=== PATIENT | female | born 1970 | race Caucasian/White ===

== ENCOUNTER 2017-06-20 09:53 | Inpatient (IN) | payer OTHER ==
[~2017-06-20] VITALS: Ht 157.5 cm; Wt 96.1 kg
[~2017-06-20 09:53] MED LIST: ALDACTONE25 MG PO; AMOX TR-K CLV1 EAC4 PO; CHLORDIAZEPOXID25 MG PO; DOCUSATE SODIU100 MG PO; ENDOCET 5-3251 EACH PO; FLORASTOR250 MG PO; FOLIC ACID1 MG PO; METFORMIN HCL1000 MG PO; NICOTINE PATCH1 EAC2 TD; ONE-A-DAY WOME1 EAC1 PO; PANTOPRAZOLE SO40 MG PO; POTASSIUM CHLO20 ME1 PO; PRAVASTATIN SOD40 MG PO; VITAMIN B-1100 MG PO
[2017-06-20 10:33] LABS: EOSINOPHIL (%) 0.1 % (0-5); HEMATOCRIT 31.3 % (36.0-46.0); IMMATURE GRANULOCYTE (%) 1.5 % (0.0-0.7); IMMATURE GRANULOCYTE COUNT 0.2 K/uL; INSTRUMENT ABS NEUTROPHIL CT 10.7 K/uL; LYMPHOCYTE COUNT 0.8 K/uL (1.0-2.8); MCHC 34.2 G/DL (30.0-36.0); MCV 102.3 FL (83-99); MEAN PLAT.VOLUME 10.7 uM^3 (9.5-12.4); MONOCYTE (%) 5.8 % (3-12); MONOCYTE COUNT 0.7 K/uL (0-0.8); NEUTROPHIL COUNT 10.7 K/uL (1.8-6.4); PLATELET COUNT 120 K/uL (156-360); RBC DIS.WIDTH-CV 15.1 % (11.8-14.6); RBC DIS.WIDTH-SD 55.8 % (39-53); RED BLOOD COUNT 3.06 M/uL (3.80-5.20); WHITE BLOOD COUNT 12.4 K/uL (4.1-10.2)
[2017-06-20 10:38] LABS: INTER. NORMALIZED RATIO 1.7; PROTHROMBIN TIME 19.2 SEC (10.2-12.9)
[2017-06-20 10:43] LABS: CHLORIDE 80 mEq/L (99-109); POTASSIUM 2.6 mEq/L (3.7-5.4); SODIUM 121 mEq/L (136-147)
[2017-06-20 10:45] LABS: GLUCOSE 100 mg/dL (70-99)
[2017-06-20 10:46] LABS: ANION GAP 25 MEQ/L (2-14)
[2017-06-20 10:48] LABS: ALKALINE PHOSPHATASE 666 IU/L (3-129)
[2017-06-20 10:49] LABS: GFR ESTIMATE (CALCULATED) 32 mL/min/
[2017-06-20 10:50] LABS: UREA NITROGEN (BUN) 21 mg/dL (9-23)
[2017-06-20 10:52] LABS: LIPASE 182 U/L (1.0-51.0)
[2017-06-20 10:58] LABS: TOTAL BILIRUBIN 30.3 mg/dL (0.0-1.0)
[2017-06-20] MEDS ORDERED: ADVIL200 MG PO (14:25)
[2017-06-20] MEDS ORDERED: ALLERGY EYE DRO10 ML BOTH EYES (14:26)
[2017-06-20] MEDS ORDERED: DIABETIC TP (14:28)
[2017-06-20 16:21] VITALS: BP 114/64
[2017-06-20 17:19] LABS: SERUM ETHYL ALCOHOL 61 mg/dL
[2017-06-20 20:17] VITALS: BP 103/70
[2017-06-20 22:57] VITALS: BP 126/84
[2017-06-21 04:24] VITALS: BP 112/77
[2017-06-21 06:03] LABS: HEMATOCRIT 30.3 % (36.0-46.0); MCHC 34.3 G/DL (30.0-36.0); MCV 104.8 FL (83-99); PLATELET COUNT 123 K/uL (156-360); RBC DIS.WIDTH-CV 15.5 % (11.8-14.6); RBC DIS.WIDTH-SD 58.5 % (39-53); RED BLOOD COUNT 2.89 M/uL (3.80-5.20); WHITE BLOOD COUNT 12.1 K/uL (4.1-10.2)
[2017-06-21 06:27] LABS: INTER. NORMALIZED RATIO 1.8; PROTHROMBIN TIME 19.9 SEC (10.2-12.9)
[2017-06-21 06:39] LABS: ALKALINE PHOSPHATASE 567 IU/L (3-129); ANION GAP 19 MEQ/L (2-14); CHLORIDE 85 MEQ/L (99-109); GAMMA-GT 2133 IU/L (4-73); GFR ESTIMATE (CALCULATED) 26 mL/min/; GLUCOSE 96 mg/dL (70-99); HDL CHOLESTEROL 16 MG/DL (Desirable>=50); IRON 119 MCG/DL (35-150); LDL CHOLESTEROL 488 mg/dL (Desirable<100); NON-HDL CHOLESTEROL 545 mg/dL (Desirable<160); SAMPLE HEMOLYSIS CHECK 0; SAMPLE ICTERIC CHECK 4; SAMPLE LIPEMIA CHECK 0; SODIUM 122 MEQ/L (136-147); TOTAL BILIRUBIN 31.4 MG/DL (0.0-1.0); TOTAL CHOLESTEROL 561 mg/dL (Desirable<200); TRIGLYCERIDES 283 MG/DL (Normal: <150); UREA NITROGEN (BUN) 26 mg/dL (9-23)
[2017-06-21 08:03] VITALS: BP 120/73
[2017-06-21 11:06] LABS: HBSG INDEX 0.16; HPCA INDEX 0.31
[2017-06-21 11:08] LABS: ANTI-HEPATITIS A VIRUS (IGM) Nonreactive; ANTI-HEPATITIS B CORE (IGM) Nonreactive; HAV INDEX 0.13; HBC IgM INDEX 0.08
[2017-06-21 11:39] LABS: TYPE OF FLUID PARACENTESIS
[2017-06-21 12:46] LABS: BODY FLUID EOSINOPHILS 0 % (0-25); BODY FLUID RBC'S 1000 /MM^3 (0-100); BODY FLUID WBC'S 149 /MM^3 (0-500); MONONUCLEAR WBC'S 83 %; POLYNUCLEAR WBC'S 17 % (0-25)
[2017-06-21 15:45] VITALS: BP 111/73
[2017-06-21 17:00] LABS: MAGNESIUM 2.2 mg/dl (1.3-2.7)
[2017-06-21 17:25] LABS: ADD MIUA? YES; BILIRUBIN MODERATE; BLOOD LARGE; COLOR AMBER ((YELLOW)); GLUCOSE (STRIP) 50; KETONES 5; LEUKOCYTES SMALL; NITRITE NEGATIVE; PROTEIN (STRIP) 30; SPECIFIC GRAVITY 1.021 (1.000-1.030)
[2017-06-21 17:26] LABS: ADD MIUA? YES; BILIRUBIN MODERATE; BLOOD LARGE; COLOR AMBER ((YELLOW)); GLUCOSE (STRIP) 50; KETONES NEGATIVE; LEUKOCYTES SMALL; NITRITE NEGATIVE; PROTEIN (STRIP) 30; SPECIFIC GRAVITY 1.021 (1.000-1.030)
[2017-06-21 17:54] LABS: UR CREATININE CONCENTRATION 152.5 MG/DL
[2017-06-21 18:01] LABS: ICTOTEST POSITIVE
[2017-06-21 18:04] LABS: ICTOTEST POSITIVE
[2017-06-21 19:20] LABS: CREATINE KINASE 30 IU/L (1-294)
[2017-06-21 19:23] VITALS: BP 111/76
[2017-06-21 19:41] LABS: EPITHELIAL CELLS RARE /HPF; MUCUS RARE /LPF; RED BLOOD CELLS 15-20 /HPF (0-5)
[2017-06-21 19:42] LABS: BACTERIA 1+ /HPF; CASTS PRESENT /LPF; HYALINE CASTS 0-5 /LPF
[2017-06-21 19:46] LABS: CRYSTALS NONE SEEN
[2017-06-21 19:48] LABS: BACTERIA 1+ /HPF; CASTS PRESENT /LPF; CRYSTALS NONE SEEN; EPITHELIAL CELLS RARE /HPF; HYALINE CASTS 0-5 /LPF; MUCUS RARE /LPF; RED BLOOD CELLS 15-20 /HPF (0-5); UCUL ADDED? YES
[2017-06-21 22:38] VITALS: BP 130/89
[2017-06-22 02:59] VITALS: BP 118/72
[2017-06-22 08:11] VITALS: BP 134/78
[2017-06-22 09:18] LABS: EOSINOPHIL (%) 0.3 % (0-5); HEMATOCRIT 28.2 % (36.0-46.0); IMMATURE GRANULOCYTE (%) 1.3 % (0.0-0.7); IMMATURE GRANULOCYTE COUNT 0.2 K/uL; INSTRUMENT ABS NEUTROPHIL CT 9.7 K/uL; LYMPHOCYTE COUNT 0.9 K/uL (1.0-2.8); MCH 36.5 PG (29.0-34.0); MCHC 33.7 G/DL (30.0-36.0); MCV 108.5 FL (83-99); MEAN PLAT.VOLUME 10.6 uM^3 (9.5-12.4); MONOCYTE (%) 7.2 % (3-12); MONOCYTE COUNT 0.8 K/uL (0-0.8); NEUTROPHIL (%) 83.3 % (45-76); NEUTROPHIL COUNT 9.7 K/uL (1.8-6.4); NRBC (%) 0.2 /100 WBC (0-0); PLATELET COUNT 107 K/uL (156-360); RBC DIS.WIDTH-CV 15.8 % (11.8-14.6); RBC DIS.WIDTH-SD 62.3 % (39-53); WHITE BLOOD COUNT 11.6 K/uL (4.1-10.2)
[2017-06-22 10:02] LABS: ALKALINE PHOSPHATASE 528 IU/L (3-129); ANION GAP 19 MEQ/L (2-14); CHLORIDE 90 MEQ/L (99-109); DIRECT BILIRUBIN 23.6 mg/dL (0.0-0.3); GFR ESTIMATE (CALCULATED) 24 mL/min/; POTASSIUM 3.4 MEQ/L (3.7-5.4); SAMPLE HEMOLYSIS CHECK 0; SAMPLE ICTERIC CHECK 4; SAMPLE LIPEMIA CHECK 1; SODIUM 125 MEQ/L (136-147); TOTAL BILIRUBIN 32.7 MG/DL (0.0-1.0); UREA NITROGEN (BUN) 34 mg/dL (9-23)
[2017-06-22 10:07] LABS: GLUCOSE 61 mg/dL (70-99)
[2017-06-22 11:43] VITALS: BP 126/74
[2017-06-22 15:59] VITALS: BP 104/73
[2017-06-22] MEDS ORDERED: Chronulac,Cephulac,E PO (19:48)
[2017-06-22] MEDS ORDERED: DIPHENHYDR50 MG/1 M2 IV (19:48)
[2017-06-22] MEDS ORDERED: XIFAXAN550 MG PO (19:48)
[2017-06-22] MEDS ORDERED: ONDANSETRON4 MG/2 ML IV (19:49)
[2017-06-22] MEDS ORDERED: NABI650T PO (19:49)
[2017-06-22] MEDS ORDERED: FAMOTIDINE20 MG PO (19:50)
[2017-06-22] MEDS ORDERED: ROCEPHIN1 GM/50 ML IV (19:51)
[2017-06-22] MEDS ORDERED: DIALYVITE50000 UNIT PO (19:51)
[2017-06-22 22:27] VITALS: BP 120/71
[2017-06-23] VITALS (8 sets, daily range): BP systolic 0–138; BP diastolic 0–107
[2017-06-23 04:02] LABS: BASE EXCESS -13.9 mEq/L (-3 to +3); BICARBONATE 15.2 mEq/L (22-26); CARBOXY HGB 1.6 % (0-5); METHEMOGLOBIN 2.6 % (0-1.5); PCO2 49 mm Hg (35-45); PO2 218 mm Hg (80-100)
[2017-06-23 04:03] LABS: COMMENTS - BLOOD GASES C+; DEVICE AMBU/ETT; FI02 100 %; SITE LR; TOTAL RESP RATE 20 resp/min
[2017-06-23 04:27] LABS: HEMATOCRIT 29.5 % (36.0-46.0); MCH 35.4 PG (29.0-34.0); MCHC 32.2 G/DL (30.0-36.0); MCV 110.1 FL (83-99); MEAN PLAT.VOLUME 10.4 uM^3 (9.5-12.4); NRBC (%) 0.3 /100 WBC (0-0); PLATELET COUNT 142 K/uL (156-360); RBC DIS.WIDTH-CV 15.8 % (11.8-14.6); RBC DIS.WIDTH-SD 63.1 % (39-53); RED BLOOD COUNT 2.68 M/uL (3.80-5.20); WHITE BLOOD COUNT 18.6 K/uL (4.1-10.2)
[2017-06-23 04:30] LABS: POTASSIUM 3.9 mEq/L (3.7-5.4); SODIUM 129 mEq/L (136-147)
[2017-06-23 04:31] LABS: CHLORIDE 94 mEq/L (99-109); MAGNESIUM 1.9 mg/dL (1.3-2.7)
[2017-06-23 04:34] LABS: ANION GAP 21 MEQ/L (2-14); GLUCOSE 86 mg/dL (70-99)
[2017-06-23 04:36] LABS: GFR ESTIMATE (CALCULATED) 22 mL/min/
[2017-06-23 04:37] LABS: ALKALINE PHOSPHATASE 495 IU/L (3-129); UREA NITROGEN (BUN) 34 mg/dL (9-23)
[2017-06-23 04:43] LABS: TOTAL BILIRUBIN 32.1 mg/dL (0.0-1.0)
[2017-06-23 05:17] LABS: BASE EXCESS -14.4 mEq/L (-3 to +3); BICARBONATE 17.3 mEq/L (22-26); CARBOXY HGB 3.1 % (0-5)
[2017-06-23 05:19] LABS: COMMENTS - BLOOD GASES C+; DEVICE AEROSOL FACE MASK; FI02 100 %; O2 FLOW 11 L/MIN; PCO2 75 mm Hg (35-45); SITE LB; pH 6.97 (7.35-7.45)
[2017-06-23 05:20] LABS: PO2 35 mm Hg (80-100)
[2017-06-24 18:52] LABS: HEMATOCRIT 26.6 % (36.0-46.0); MCH 37.1 PG (29.0-34.0); MEAN PLAT.VOLUME 10.4 uM^3 (9.5-12.4); NRBC (%) 0.3 /100 WBC (0-0); PLATELET COUNT 111 K/uL (156-360); RBC DIS.WIDTH-SD 62.3 % (39-53); RED BLOOD COUNT 2.51 M/uL (3.80-5.20); WHITE BLOOD COUNT 10.8 K/uL (4.1-10.2)
[2017-06-24 18:57] LABS: INTER. NORMALIZED RATIO 1.9
[2017-06-24 19:09] LABS: ALKALINE PHOSPHATASE 427 IU/L (3-129); ANION GAP 15 MEQ/L (2-14); CHLORIDE 90 MEQ/L (99-109); GFR ESTIMATE (CALCULATED) 18 mL/min/; GLUCOSE 85 mg/dL (70-99); POTASSIUM 2.9 MEQ/L (3.7-5.4); SAMPLE HEMOLYSIS CHECK 0; SAMPLE ICTERIC CHECK 4; SAMPLE LIPEMIA CHECK 1; SODIUM 127 MEQ/L (136-147); TOTAL BILIRUBIN 29.6 MG/DL (0.0-1.0); UREA NITROGEN (BUN) 42 mg/dL (9-23)
== END 2017-06-24 23:03 | disposition short-term general hospital (02) | DRG 441 ==
LOC: EME 09:53 → 5EAST 14:43 → EDOF 14:43 → ENRESERV 14:48 → 5EAST 15:44 → ENRESERV 06-22 19:15 → 4EAST 06-22 22:07 → ENRESERV 06-23 04:05 → 4WEST 06-23 04:06 → ENRESERV 06-23 08:04 → 5EAST 06-23 10:41 → ENRESERV 06-23 13:53 → CANRESERV 06-23 13:53 → 5EAST 06-23 14:02
PROVIDERS: Emergency Medicine; Family Medicine Sports Medicine; Hospitalist; Internal Medicine; Specialist; Urology
DX: K76.7 Hepatorenal syndrome (principal); N17.0 Acute kidney failure with tubular necrosis; K70.31 Alcoholic cirrhosis of liver with ascites; K70.11 Alcoholic hepatitis with ascites; K72.00 Acute and subacute hepatic failure without coma; N30.81 Other cystitis with hematuria; R56.9 Unspecified convulsions; J96.90 Respiratory failure, unspecified, unspecified whether with hypoxia or hypercapnia; I46.9 Cardiac arrest, cause unspecified; J69.0 Pneumonitis due to inhalation of food and vomit; Z66 Do not resuscitate; Z51.5 Encounter for palliative care; E87.1 Hypo-osmolality and hyponatremia; E87.6 Hypokalemia; E87.4 Mixed disorder of acid-base balance; R78.81 Bacteremia; B96.20 Unspecified Escherichia coli [E. coli] as the cause of diseases classified elsewhere; F10.20 Alcohol dependence, uncomplicated; D53.9 Nutritional anemia, unspecified; I12.9 Hypertensive chronic kidney disease with stage 1 through stage 4 chronic kidney disease, or unspecified chronic kidney disease; E11.22 Type 2 diabetes mellitus with diabetic chronic kidney disease; N18.9 Chronic kidney disease, unspecified; E66.9 Obesity, unspecified; F17.210 Nicotine dependence, cigarettes, uncomplicated; F32.9 Major depressive disorder, single episode, unspecified; F40.240 Claustrophobia; F43.20 Adjustment disorder, unspecified; I25.10 Atherosclerotic heart disease of native coronary artery without angina pectoris; I73.9 Peripheral vascular disease, unspecified; J44.9 Chronic obstructive pulmonary disease, unspecified; K21.9 Gastro-esophageal reflux disease without esophagitis; K80.20 Calculus of gallbladder without cholecystitis without obstruction; Y90.3 Blood alcohol level of 60-79 mg/100 ml; Z91.19 Patient's noncompliance with other medical treatment and regimen
CPT/HCPCS: 31500; 36600; 49083; 71010; 74176; 76705; 76770; 76856; 80053; 80061; 80074; 81003; 82010; 82140; 82248; 82306; 82436; 82550; 82570; 82607; 82746; 82803; 82977; 83540; 83605; 83690; 83735; 84156; 84300; 84443; 84466; 85025; 85027; 85610; 87040; 87070; 87077; 87086; 87106; 87186; 87205; 87641; 87801; 88108; 89051; 93005; 94002; 94640 76; 94799; 99281; 99285; G0480; J0696; J1200; J2270; J2543; J3370; J3480; J7030; J7050; J7070; J7120; P9047

== ENCOUNTER 2017-09-21 06:13 | Emergency (ER) | payer OTHER ==
[~2017-09-21] VITALS: Ht 157.5 cm; Wt 72.7 kg
[~2017-09-21 06:13] MED LIST changes: +ADVIL200 MG PO; +ALLERGY EYE DRO10 ML BOTH EYES; +Chronulac,Cephulac,E PO; +DIABETIC TP; +DIALYVITE50000 UNIT PO; +DIPHENHYDR50 MG/1 M2 IV; +FAMOTIDINE20 MG PO; +NABI650T PO; +ONDANSETRON4 MG/2 ML IV; +ROCEPHIN1 GM/50 ML IV; +XIFAXAN550 MG PO
[2017-09-21] MEDS ORDERED: NORCO 5/3251 TABLET PO (06:46)
[2017-09-21] MEDS ORDERED: DOXYCYCLINE HY100 M3 PO (06:46)
[2017-09-21 06:54] VITALS: BP 135/94
== END 2017-09-21 07:13 | disposition home or self-care (01) ==
LOC: EME 06:13
DX: L03.311 Cellulitis of abdominal wall (principal); I10 Essential (primary) hypertension; K21.9 Gastro-esophageal reflux disease without esophagitis; R56.9 Unspecified convulsions; F17.200 Nicotine dependence, unspecified, uncomplicated
CPT/HCPCS: 99281; 99284

== ENCOUNTER 2017-09-29 06:15 | Emergency (ER) | payer OTHER ==
[~2017-09-29] VITALS: Ht 157.5 cm; Wt 66.8 kg
[~2017-09-29 06:15] MED LIST changes: +DOXYCYCLINE HY100 M3 PO; +NORCO 5/3251 TABLET PO
[2017-09-29 07:07] LABS: HEMATOCRIT 26.3 % (36.0-46.0); MCH 31.1 PG (29.0-34.0); MCHC 34.2 G/DL (30.0-36.0); MEAN PLAT.VOLUME 9.4 uM^3 (9.5-12.4); PLATELET COUNT 272 K/uL (156-360); RBC DIS.WIDTH-CV 13.7 % (11.8-14.6); RBC DIS.WIDTH-SD 45.5 % (39-53); RED BLOOD COUNT 2.89 M/uL (3.80-5.20); WHITE BLOOD COUNT 9.6 K/uL (4.1-10.2)
[2017-09-29 07:42] LABS: ALKALINE PHOSPHATASE 89 IU/L (3-129); ANION GAP 11 MEQ/L (2-14); CHLORIDE 98 MEQ/L (99-109); GFR ESTIMATE (CALCULATED) 29 mL/min/; GLUCOSE 108 mg/dL (70-99); POTASSIUM 3.7 MEQ/L (3.7-5.4); SAMPLE HEMOLYSIS CHECK 0; SAMPLE ICTERIC CHECK 0; SAMPLE LIPEMIA CHECK 0; SODIUM 132 MEQ/L (136-147); TOTAL BILIRUBIN 1.8 MG/DL (0.0-1.0); UREA NITROGEN (BUN) 24 mg/dL (9-23)
[2017-09-29] MEDS ORDERED: PERCOCET 5/31 TABLET PO (08:04)
[2017-09-29] MEDS ORDERED: KENALOG,ARISTOC15 G2 TP (08:04)
[2017-09-29] MEDS ORDERED: BACTRIM,SEPT1 TABLET PO (08:04)
[2017-09-29 08:47] VITALS: BP 103/78
== END 2017-09-29 08:51 | disposition home or self-care (01) ==
LOC: EME 06:15
PROVIDERS: Emergency Medicine
PROC: 0H97XZZ Drainage of Abdomen Skin, External Approach (ICD-10-PCS; principal; 2017-09-29)
DX: L03.311 Cellulitis of abdominal wall (principal); L02.211 Cutaneous abscess of abdominal wall; D64.9 Anemia, unspecified; K74.60 Unspecified cirrhosis of liver; I10 Essential (primary) hypertension; K21.9 Gastro-esophageal reflux disease without esophagitis; F17.200 Nicotine dependence, unspecified, uncomplicated
CPT/HCPCS: 80053; 85027; 87040; 87070; 87075; 87077; 87186; 87205; 99281; 99283; J2270

== ENCOUNTER 2017-10-19 06:38 | Emergency (ER) | payer OTHER ==
[~2017-10-19] VITALS: Ht 157.5 cm; Wt 65.4 kg
[~2017-10-19 06:38] MED LIST changes: +BACTRIM,SEPT1 TABLET PO; +KENALOG,ARISTOC15 G2 TP; +PERCOCET 5/31 TABLET PO
[2017-10-19] MEDS ORDERED: NORCO 5/3251 TABLET PO (12:54)
[2017-10-19] MEDS ORDERED: BACTRIM,SEPT1 TABLET PO (12:54)
[2017-10-19 13:07] VITALS: BP 106/75
== END 2017-10-19 13:07 | disposition home or self-care (01) ==
LOC: EME 06:38
DX: L03.311 Cellulitis of abdominal wall (principal); I10 Essential (primary) hypertension; R56.9 Unspecified convulsions; K74.60 Unspecified cirrhosis of liver; F17.200 Nicotine dependence, unspecified, uncomplicated
CPT/HCPCS: 76882; 80053; 81003; 84702; 85027; 99281; 99284; J2270

== ENCOUNTER 2017-10-25 05:54 | Emergency (ER) | payer OTHER ==
[~2017-10-25] VITALS: Ht 157.5 cm; Wt 65.4 kg
[2017-10-25 06:33] LABS: HEMATOCRIT 25.4 % (36.0-46.0); HEMOGLOBIN 8.9 G/DL (11.9-15.5); MCH 30.9 PG (29.0-34.0); PLATELET COUNT 368 K/uL (156-360); RBC DIS.WIDTH-CV 13.2 % (11.8-14.6); RBC DIS.WIDTH-SD 42.5 % (39-53); RED BLOOD COUNT 2.88 M/uL (3.80-5.20)
[2017-10-25 06:34] LABS: MCV 88.2 FL (83-99)
[2017-10-25 06:48] LABS: CHLORIDE 94 mEq/L (99-109); POTASSIUM 5.2 mEq/L (3.7-5.4); SODIUM 123 mEq/L (136-147)
[2017-10-25 06:49] LABS: GLUCOSE 86 mg/dL (70-99)
[2017-10-25 06:53] LABS: GFR ESTIMATE (CALCULATED) 29 mL/min/
[2017-10-25 06:54] LABS: UREA NITROGEN (BUN) 36 mg/dL (9-23)
[2017-10-25] MEDS ORDERED: LEVAQUIN500 MG PO (09:34)
[2017-10-25] MEDS ORDERED: OXYCODONE HCL10 MG PO (09:34)
[2017-10-25 11:48] VITALS: BP 121/72
== END 2017-10-25 11:49 | disposition home or self-care (01) ==
LOC: EME 05:54
PROVIDERS: Physician Assistant
DX: L03.311 Cellulitis of abdominal wall (principal); F17.200 Nicotine dependence, unspecified, uncomplicated; K74.60 Unspecified cirrhosis of liver; I10 Essential (primary) hypertension; Z76.82 Awaiting organ transplant status
CPT/HCPCS: 74176; 80048; 81003; 83605; 85027; 87040; 87070; 87075; 87205; 99281; 99284; J3010; J7030

== ENCOUNTER 2017-10-28 03:58 | Inpatient (IN) | payer OTHER ==
[~2017-10-28] VITALS: Ht 157.5 cm; Wt 61.4 kg
[~2017-10-28 03:58] MED LIST changes: +LEVAQUIN500 MG PO; +OXYCODONE HCL10 MG PO
[2017-10-28 04:38] LABS: HEMATOCRIT 24.4 % (36.0-46.0); HEMOGLOBIN 8.5 G/DL (11.9-15.5); MCH 30.7 PG (29.0-34.0); MCHC 34.8 G/DL (30.0-36.0); MCV 88.1 FL (83-99); PLATELET COUNT 350 K/uL (156-360); RBC DIS.WIDTH-CV 13.1 % (11.8-14.6); RBC DIS.WIDTH-SD 42.4 % (39-53); RED BLOOD COUNT 2.77 M/uL (3.80-5.20); WHITE BLOOD COUNT 13.9 K/uL (4.1-10.2)
[2017-10-28 04:47] LABS: ALBUMIN 3.5 g/dL (3.2-4.8)
[2017-10-28 04:48] LABS: CHLORIDE 99 mEq/L (99-109); POTASSIUM 5.2 mEq/L (3.7-5.4); SODIUM 125 mEq/L (136-147)
[2017-10-28 04:50] LABS: GLUCOSE 107 mg/dL (70-99); TOTAL PROTEIN 8.5 g/dL (6.4-8.3)
[2017-10-28 04:52] LABS: TOTAL BILIRUBIN 0.6 mg/dL (0.0-1.0)
[2017-10-28 04:53] LABS: ALKALINE PHOSPHATASE 123 IU/L (3-129)
[2017-10-28 04:54] LABS: CREATININE 2.3 mg/dL (0.6-1.3); GFR ESTIMATE (CALCULATED) 24 mL/min/
[2017-10-28 04:55] LABS: AST (GOT) 25 IU/L (2-34); UREA NITROGEN (BUN) 35 mg/dL (9-23)
[2017-10-28 04:57] LABS: ALT (GPT) 15 IU/L (3-49); LIPASE 60 U/L (1.0-51.0)
[2017-10-28 06:24] LABS: APPEARANCE CLEAR ((CLEAR)); BILIRUBIN NEGATIVE; BLOOD NEGATIVE; COLOR YELLOW ((YELLOW)); GLUCOSE (STRIP) NEGATIVE; KETONES NEGATIVE; LEUKOCYTES NEGATIVE; NITRITE NEGATIVE; PROTEIN (STRIP) NEGATIVE; SPECIFIC GRAVITY 1.011 (1.000-1.030); UCUL ADDED? NO; UROBILINOGEN 0.2 MG/DL (0.2-1.0)
[2017-10-28 13:50] LABS: CHLORIDE 107 mEq/L (99-109); POTASSIUM 4.8 mEq/L (3.7-5.4); SODIUM 129 mEq/L (136-147)
[2017-10-28 13:52] LABS: GLUCOSE 88 mg/dL (70-99)
[2017-10-28 13:55] LABS: CREATININE 1.9 mg/dL (0.6-1.3); GFR ESTIMATE (CALCULATED) 30 mL/min/
[2017-10-28 13:56] LABS: UREA NITROGEN (BUN) 30 mg/dL (9-23)
[2017-10-28 17:55] VITALS: BP 133/90
[2017-10-28 19:50] VITALS: BP 123/70
[2017-10-28] MEDS ORDERED: BENADRYL50 MG PO (20:53)
[2017-10-28] MEDS ORDERED: SIMVASTATIN20 MG PO (20:59)
[2017-10-28] MEDS ORDERED: LASIX40 MG PO (20:59)
[2017-10-28] MEDS ORDERED: ALDACTONE100 MG PO (21:00)
[2017-10-28 23:35] VITALS: BP 122/77
[2017-10-29] VITALS (7 sets, daily range): BP systolic 111–128; BP diastolic 61–80
[2017-10-29 07:59] LABS: BASOPHIL (%) 0.4 % (0-1); EOSINOPHIL (%) 1.9 % (0-5); EOSINOPHIL COUNT 0.2 K/uL (0-0.3); HEMATOCRIT 24.2 % (36.0-46.0); HEMOGLOBIN 8.2 G/DL (11.9-15.5); IMMATURE GRANULOCYTE (%) 0.4 % (0.0-0.7); LYMPHOCYTE COUNT 1.8 K/uL (1.0-2.8); MCH 31.1 PG (29.0-34.0); MCHC 33.9 G/DL (30.0-36.0); MCV 91.7 FL (83-99); MONOCYTE (%) 10.1 % (3-12); NEUTROPHIL (%) 69.2 % (45-76); NEUTROPHIL COUNT 6.9 K/uL (1.8-6.4); PLATELET COUNT 293 K/uL (156-360); RBC DIS.WIDTH-CV 13.4 % (11.8-14.6); RBC DIS.WIDTH-SD 45.1 % (39-53); RED BLOOD COUNT 2.64 M/uL (3.80-5.20)
[2017-10-29 08:22] LABS: ALBUMIN 2.7 G/DL (3.2-4.8); ALKALINE PHOSPHATASE 93 IU/L (3-129); ALT (GPT) 12 IU/L (3-49); AST (GOT) 20 IU/L (2-34); CHLORIDE 105 MEQ/L (99-109); GFR ESTIMATE (CALCULATED) 47 mL/min/; GLUCOSE 81 mg/dL (70-99); POTASSIUM 4.2 MEQ/L (3.7-5.4); SODIUM 129 MEQ/L (136-147); TOTAL BILIRUBIN 0.7 MG/DL (0.0-1.0); UREA NITROGEN (BUN) 19 mg/dL (9-23)
[2017-10-29 08:27] LABS: CREATININE 1.3 MG/DL (0.6-1.3)
[2017-10-30 03:20] VITALS: BP 120/77
[2017-10-30 08:32] VITALS: BP 134/77
[2017-10-30 15:45] VITALS: BP 123/65
[2017-10-30 23:14] VITALS: BP 129/64
[2017-10-31 06:46] LABS: BASOPHIL (%) 0.5 % (0-1); BASOPHIL COUNT 0.1 K/uL (0-0.1); EOSINOPHIL (%) 2.2 % (0-5); EOSINOPHIL COUNT 0.2 K/uL (0-0.3); HEMATOCRIT 22.2 % (36.0-46.0); HEMOGLOBIN 7.5 G/DL (11.9-15.5); IMMATURE GRANULOCYTE (%) 0.6 % (0.0-0.7); LYMPHOCYTE (%) 14.5 % (15-42); LYMPHOCYTE COUNT 1.5 K/uL (1.0-2.8); MCH 31.1 PG (29.0-34.0); MCHC 33.8 G/DL (30.0-36.0); MCV 92.1 FL (83-99); MONOCYTE (%) 7.6 % (3-12); MONOCYTE COUNT 0.8 K/uL (0-0.8); NEUTROPHIL (%) 74.6 % (45-76); NEUTROPHIL COUNT 7.5 K/uL (1.8-6.4); PLATELET COUNT 272 K/uL (156-360); RBC DIS.WIDTH-CV 13.8 % (11.8-14.6); RBC DIS.WIDTH-SD 46.7 % (39-53); RED BLOOD COUNT 2.41 M/uL (3.80-5.20)
[2017-10-31 07:09] VITALS: BP 116/66
[2017-10-31 07:09] LABS: CHLORIDE 111 MEQ/L (99-109); CREATININE 0.9 MG/DL (0.6-1.3); GFR ESTIMATE (CALCULATED) > 59 mL/min/; GLUCOSE 91 mg/dL (70-99); POTASSIUM 3.8 MEQ/L (3.7-5.4); SODIUM 134 MEQ/L (136-147); UREA NITROGEN (BUN) 11 mg/dL (9-23)
[2017-10-31 15:24] VITALS: BP 112/72
[2017-10-31 23:05] VITALS: BP 126/81
[2017-11-01] VITALS (9 sets, daily range): BP systolic 108–143; BP diastolic 68–89
[2017-11-01 10:01] LABS: HEMATOCRIT 26.8 % (36.0-46.0); HEMOGLOBIN 8.8 G/DL (11.9-15.5); MCH 29.4 PG (29.0-34.0); MCHC 32.8 G/DL (30.0-36.0); MCV 89.6 FL (83-99); PLATELET COUNT 261 K/uL (156-360); RBC DIS.WIDTH-CV 14.2 % (11.8-14.6); RBC DIS.WIDTH-SD 46.6 % (39-53)
[2017-11-01 10:12] LABS: RED BLOOD COUNT 2.99 M/uL (3.80-5.20)
[2017-11-01 11:07] LABS: ALBUMIN 2.2 G/DL (3.2-4.8); ALKALINE PHOSPHATASE 83 IU/L (3-129); ALT (GPT) 14 IU/L (3-49); AST (GOT) 22 IU/L (2-34); CHLORIDE 114 MEQ/L (99-109); CREATININE 0.9 MG/DL (0.6-1.3); GFR ESTIMATE (CALCULATED) > 59 mL/min/; GLUCOSE 125 mg/dL (70-99); POTASSIUM 3.6 MEQ/L (3.7-5.4); SODIUM 135 MEQ/L (136-147); UREA NITROGEN (BUN) 9 mg/dL (9-23)
[2017-11-01 11:08] LABS: TOTAL BILIRUBIN 0.5 MG/DL (0.0-1.0); TOTAL PROTEIN 5.7 G/DL (6.4-8.3)
[2017-11-02 00:54] VITALS: BP 131/81
[2017-11-02 07:00] VITALS: BP 128/89
[2017-11-02 07:09] LABS: BASOPHIL (%) 0.6 % (0-1); BASOPHIL COUNT 0.1 K/uL (0-0.1); EOSINOPHIL (%) 2.3 % (0-5); EOSINOPHIL COUNT 0.3 K/uL (0-0.3); HEMATOCRIT 29.9 % (36.0-46.0); HEMOGLOBIN 9.8 G/DL (11.9-15.5); IMMATURE GRANULOCYTE (%) 0.6 % (0.0-0.7); LYMPHOCYTE (%) 14.8 % (15-42); LYMPHOCYTE COUNT 1.9 K/uL (1.0-2.8); MCH 29.5 PG (29.0-34.0); MCHC 32.8 G/DL (30.0-36.0); MCV 90.1 FL (83-99); MONOCYTE (%) 8.2 % (3-12); MONOCYTE COUNT 1.1 K/uL (0-0.8); NEUTROPHIL (%) 73.5 % (45-76); NEUTROPHIL COUNT 9.5 K/uL (1.8-6.4); PLATELET COUNT 322 K/uL (156-360); RBC DIS.WIDTH-SD 49.3 % (39-53); RED BLOOD COUNT 3.32 M/uL (3.80-5.20); WHITE BLOOD COUNT 12.9 K/uL (4.1-10.2)
[2017-11-02 07:44] LABS: CHLORIDE 114 MEQ/L (99-109); CREATININE 0.9 MG/DL (0.6-1.3); GFR ESTIMATE (CALCULATED) > 59 mL/min/; POTASSIUM 3.9 MEQ/L (3.7-5.4); SODIUM 136 MEQ/L (136-147); UREA NITROGEN (BUN) 8 mg/dL (9-23)
[2017-11-02 07:47] LABS: GLUCOSE 86 mg/dL (70-99)
[2017-11-02 15:40] VITALS: BP 124/83
[2017-11-02 20:05] VITALS: BP 129/89
[2017-11-02] MEDS ORDERED: TYLENOL REGULA325 MG PO (20:06)
[2017-11-02] MEDS ORDERED: DOCUSATE SODIU100 MG PO (20:07)
== END 2017-11-02 21:02 | disposition home or self-care (01) | DRG 872 ==
LOC: EME → EDBD 03:58 → EME 03:58 → 2EAST 06:22 → EDOF 06:22 → ENRESERV 07:23 → 2EAST 17:31
PROVIDERS: Emergency Medicine; Internal Medicine
PROC: 30233N1 Transfusion of Nonautologous Red Blood Cells into Peripheral Vein, Percutaneous Approach (ICD-10-PCS; principal; 2017-11-01)
DX: A41.9 Sepsis, unspecified organism (principal); L03.311 Cellulitis of abdominal wall; N17.9 Acute kidney failure, unspecified; E11.52 Type 2 diabetes mellitus with diabetic peripheral angiopathy with gangrene; I96 Gangrene, not elsewhere classified; E87.1 Hypo-osmolality and hyponatremia; D64.9 Anemia, unspecified; B96.89 Other specified bacterial agents as the cause of diseases classified elsewhere; I12.9 Hypertensive chronic kidney disease with stage 1 through stage 4 chronic kidney disease, or unspecified chronic kidney disease; N18.9 Chronic kidney disease, unspecified; E11.22 Type 2 diabetes mellitus with diabetic chronic kidney disease; E87.0 Hyperosmolality and hypernatremia; E87.2 Acidosis; E83.59 Other disorders of calcium metabolism; R41.0 Disorientation, unspecified; K73.9 Chronic hepatitis, unspecified; K70.30 Alcoholic cirrhosis of liver without ascites; F10.20 Alcohol dependence, uncomplicated; K21.9 Gastro-esophageal reflux disease without esophagitis; K80.20 Calculus of gallbladder without cholecystitis without obstruction; F32.9 Major depressive disorder, single episode, unspecified; F41.9 Anxiety disorder, unspecified; E78.5 Hyperlipidemia, unspecified; G40.909 Epilepsy, unspecified, not intractable, without status epilepticus; M79.3 Panniculitis, unspecified; F17.200 Nicotine dependence, unspecified, uncomplicated; Z90.12 Acquired absence of left breast and nipple; Z91.19 Patient's noncompliance with other medical treatment and regimen; Z83.3 Family history of diabetes mellitus; Z82.49 Family history of ischemic heart disease and other diseases of the circulatory system
CPT/HCPCS: 71045; 74176; 80048; 80048 91; 80053; 81003; 82140; 82948; 83605; 83690; 85025; 85027; 86850; 86900; 86901; 86920; 87040; 87070; 87075; 87076; 87077; 87205; 87801; 99281; 99284; 99285; A6260; J0696; J2543; J3010; J3260; J3370; J7030; J7050; P9016

== ENCOUNTER 2017-12-22 09:42 | Emergency (ER) | payer OTHER ==
[~2017-12-22] VITALS: Ht 157.5 cm; Wt 57.0 kg
[~2017-12-22 09:42] MED LIST changes: +ALDACTONE100 MG PO; +BENADRYL50 MG PO; +CONSTULOSE10 GM/15 M PO; +LASIX40 MG PO; +SIMVASTATIN20 MG PO; +TYLENOL REGULA325 MG PO
[2017-12-22 11:39] LABS: HEMATOCRIT 27.4 % (36.0-46.0); HEMOGLOBIN 9.5 G/DL (11.9-15.5); MCH 30.6 PG (29.0-34.0); MCHC 34.7 G/DL (30.0-36.0); MCV 88.4 FL (83-99); PLATELET COUNT 379 K/uL (156-360); RBC DIS.WIDTH-CV 12.9 % (11.8-14.6); RBC DIS.WIDTH-SD 41.9 % (39-53); WHITE BLOOD COUNT 16.4 K/uL (4.1-10.2)
[2017-12-22 11:47] LABS: ALBUMIN 3.4 g/dL (3.2-4.8); CHLORIDE 94 mEq/L (99-109); POTASSIUM 4.4 mEq/L (3.7-5.4); SODIUM 128 mEq/L (136-147)
[2017-12-22 11:49] LABS: GLUCOSE 134 mg/dL (70-99)
[2017-12-22 11:50] LABS: TOTAL PROTEIN 9.2 g/dL (6.4-8.3)
[2017-12-22 11:51] LABS: TOTAL BILIRUBIN 0.5 mg/dL (0.0-1.0)
[2017-12-22 11:53] LABS: ALKALINE PHOSPHATASE 159 IU/L (3-129); CREATININE 1.4 mg/dL (0.6-1.3); GFR ESTIMATE (CALCULATED) 43 mL/min/
[2017-12-22 11:54] LABS: UREA NITROGEN (BUN) 35 mg/dL (9-23)
[2017-12-22 11:55] LABS: AST (GOT) 39 IU/L (2-34)
[2017-12-22 11:56] LABS: ALT (GPT) 50 IU/L (3-49)
[2017-12-22 18:18] VITALS: BP 121/68
== END 2017-12-22 18:19 | disposition home or self-care (01) ==
LOC: EME 09:42
PROVIDERS: Nurse Practitioner Family
DX: L03.116 Cellulitis of left lower limb (principal); Z87.2 Personal history of diseases of the skin and subcutaneous tissue; K72.90 Hepatic failure, unspecified without coma; E87.1 Hypo-osmolality and hyponatremia; M19.072 Primary osteoarthritis, left ankle and foot; R93.7 Abnormal findings on diagnostic imaging of other parts of musculoskeletal system; I45.10 Unspecified right bundle-branch block; K74.60 Unspecified cirrhosis of liver; F17.200 Nicotine dependence, unspecified, uncomplicated; Z76.82 Awaiting organ transplant status; Z90.10 Acquired absence of unspecified breast and nipple
CPT/HCPCS: 73610; 80053; 85027; 93005; 93971; 99281; 99285; J3370

== ENCOUNTER 2018-01-04 21:17 | Emergency (ER) | payer OTHER ==
[~2018-01-04] VITALS: Ht 157.5 cm; Wt 59.9 kg
[2018-01-04 23:11] LABS: HEMATOCRIT 21.2 % (36.0-46.0); HEMOGLOBIN 7.3 G/DL (11.9-15.5); MCH 30.7 PG (29.0-34.0); MCHC 34.4 G/DL (30.0-36.0); MCV 89.1 FL (83-99); PLATELET COUNT 373 K/uL (156-360); RBC DIS.WIDTH-SD 41.4 % (39-53); RED BLOOD COUNT 2.38 M/uL (3.80-5.20); WHITE BLOOD COUNT 16.4 K/uL (4.1-10.2)
[2018-01-04 23:16] LABS: ALBUMIN 2.8 g/dL (3.2-4.8)
[2018-01-04 23:17] LABS: CHLORIDE 97 mEq/L (99-109); POTASSIUM 3.9 mEq/L (3.7-5.4); SODIUM 132 mEq/L (136-147)
[2018-01-04 23:19] LABS: GLUCOSE 180 mg/dL (70-99); TOTAL PROTEIN 7.4 g/dL (6.4-8.3)
[2018-01-04 23:21] LABS: TOTAL BILIRUBIN 0.2 mg/dL (0.0-1.0)
[2018-01-04 23:22] LABS: ALKALINE PHOSPHATASE 141 IU/L (3-129)
[2018-01-04 23:23] LABS: CREATININE 1.1 mg/dL (0.6-1.3); GFR ESTIMATE (CALCULATED) 57 mL/min/
[2018-01-04 23:24] LABS: AST (GOT) 29 IU/L (2-34); UREA NITROGEN (BUN) 25 mg/dL (9-23)
[2018-01-04 23:26] LABS: ALT (GPT) 36 IU/L (3-49); LIPASE 72 U/L (1.0-51.0)
[2018-01-04 23:34] LABS: TROP-I INTERPRETATION NEGATIVE; TROPONIN-I < 0.01 ng/mL (0.0-0.30)
[2018-01-05] MEDS ORDERED: OXYCODONE HCL5 MG PO (00:43)
[2018-01-05 03:25] LABS: CHLORIDE 100 mEq/L (99-109); POTASSIUM 4.3 mEq/L (3.7-5.4); SODIUM 134 mEq/L (136-147)
[2018-01-05 03:27] LABS: GLUCOSE 119 mg/dL (70-99)
[2018-01-05 03:30] LABS: GFR ESTIMATE (CALCULATED) > 59 mL/min/
[2018-01-05 03:31] LABS: UREA NITROGEN (BUN) 24 mg/dL (9-23)
[2018-01-05 04:46] VITALS: BP 92/78
[2018-01-05] MEDS ORDERED: BACTRIM,SEPT1 TABLET PO ×2 (04:54→15:14)
[2018-01-05 05:32] VITALS: BP 92/78
== END 2018-01-05 05:33 | disposition home or self-care (01) ==
LOC: EME → EDBD 21:17 → EME 01-05 05:33
PROVIDERS: Emergency Medicine
PROC: 30233N1 Transfusion of Nonautologous Red Blood Cells into Peripheral Vein, Percutaneous Approach (ICD-10-PCS; principal; 2018-01-05)
DX: L02.211 Cutaneous abscess of abdominal wall (principal); L03.311 Cellulitis of abdominal wall; D64.9 Anemia, unspecified; E65 Localized adiposity; E87.1 Hypo-osmolality and hyponatremia; K74.60 Unspecified cirrhosis of liver; E11.9 Type 2 diabetes mellitus without complications; F17.200 Nicotine dependence, unspecified, uncomplicated; I12.9 Hypertensive chronic kidney disease with stage 1 through stage 4 chronic kidney disease, or unspecified chronic kidney disease; N18.9 Chronic kidney disease, unspecified; Z76.82 Awaiting organ transplant status
CPT/HCPCS: 80048; 80053; 83605; 83690; 84484; 85027; 86850; 86900; 86901; 86920; 87040; 93005; 99281; 99285; J3370; J7030; P9016

== ENCOUNTER 2018-01-05 11:23 | Inpatient (IN) | payer OTHER ==
[~2018-01-05] VITALS: Ht 157.5 cm; Wt 58.0 kg
[~2018-01-05 11:23] MED LIST changes: +OXYCODONE HCL5 MG PO
[2018-01-05 12:06] LABS: HEMATOCRIT 23.3 % (36.0-46.0); MCH 30.8 PG (29.0-34.0); MCHC 34.3 G/DL (30.0-36.0); MCV 89.6 FL (83-99); PLATELET COUNT 374 K/uL (156-360); RBC DIS.WIDTH-SD 42.1 % (39-53); WHITE BLOOD COUNT 13.4 K/uL (4.1-10.2)
[2018-01-05 12:13] LABS: INTER. NORMALIZED RATIO 1.3
[2018-01-05 12:15] LABS: PTT 30.8 SEC (25-37)
[2018-01-05 12:17] LABS: ALBUMIN 2.8 g/dL (3.2-4.8); CHLORIDE 101 mEq/L (99-109); POTASSIUM 3.9 mEq/L (3.7-5.4); SODIUM 131 mEq/L (136-147)
[2018-01-05 12:19] LABS: GLUCOSE 132 mg/dL (70-99); TOTAL PROTEIN 7.4 g/dL (6.4-8.3)
[2018-01-05 12:23] LABS: ALKALINE PHOSPHATASE 139 IU/L (3-129); CREATININE 1.2 mg/dL (0.6-1.3); GFR ESTIMATE (CALCULATED) 51 mL/min/
[2018-01-05 12:24] LABS: TOTAL BILIRUBIN 0.4 mg/dL (0.0-1.0); UREA NITROGEN (BUN) 23 mg/dL (9-23)
[2018-01-05 12:25] LABS: AST (GOT) 27 IU/L (2-34)
[2018-01-05 12:26] LABS: ALT (GPT) 34 IU/L (3-49)
[2018-01-05] MEDS ORDERED: BACTRIM,SEPT1 TABLET PO (15:14)
[2018-01-05 20:45] LABS: HEMATOCRIT 21.3 % (36.0-46.0); HEMOGLOBIN 7.4 G/DL (11.9-15.5); MCV 89.1 FL (83-99)
[2018-01-06] VITALS (10 sets, daily range): BP systolic 97–110; BP diastolic 64–69
[2018-01-06 06:38] LABS: HEMATOCRIT 22.5 % (36.0-46.0); HEMOGLOBIN 7.4 G/DL (11.9-15.5); MCHC 32.9 G/DL (30.0-36.0); MCV 91.1 FL (83-99); PLATELET COUNT 335 K/uL (156-360); RBC DIS.WIDTH-CV 13.2 % (11.8-14.6); RBC DIS.WIDTH-SD 43.4 % (39-53); RED BLOOD COUNT 2.47 M/uL (3.80-5.20); WHITE BLOOD COUNT 12.6 K/uL (4.1-10.2)
[2018-01-06 06:48] LABS: CHLORIDE 104 MEQ/L (99-109); GFR ESTIMATE (CALCULATED) > 59 mL/min/; SODIUM 133 MEQ/L (136-147); UREA NITROGEN (BUN) 16 mg/dL (9-23)
[2018-01-06 06:54] LABS: GLUCOSE 94 mg/dL (70-99)
[2018-01-07 00:15] VITALS: BP 106/66
[2018-01-07 03:57] VITALS: BP 104/74
[2018-01-07 06:50] VITALS: BP 104/69
[2018-01-07 07:26] LABS: HEMATOCRIT 26.5 % (36.0-46.0); HEMOGLOBIN 8.7 G/DL (11.9-15.5); MCV 91.7 FL (83-99)
[2018-01-07 12:08] VITALS: BP 110/73
[2018-01-07 17:01] VITALS: BP 107/78
[2018-01-07 19:45] LABS: HEMOGLOBIN 7.8 G/DL (11.9-15.5)
[2018-01-07 19:46] LABS: HEMATOCRIT 23.3 % (36.0-46.0); MCV 92.1 FL (83-99)
[2018-01-07 20:56] VITALS: BP 104/69
[2018-01-08 00:14] VITALS: BP 109/75
[2018-01-08 03:54] VITALS: BP 104/70
[2018-01-08 06:56] VITALS: BP 110/71
[2018-01-08 08:01] LABS: HEMATOCRIT 26.6 % (36.0-46.0); HEMOGLOBIN 8.7 G/DL (11.9-15.5); MCV 91.7 FL (83-99)
[2018-01-08 12:00] VITALS: BP 105/76
[2018-01-08 16:00] VITALS: BP 113/78
[2018-01-08 19:57] LABS: HEMOGLOBIN 8.5 G/DL (11.9-15.5); MCV 91.9 FL (83-99)
[2018-01-08 20:41] VITALS: BP 125/78
[2018-01-09] VITALS (7 sets, daily range): BP systolic 107–126; BP diastolic 69–80
[2018-01-09 06:06] LABS: HEMATOCRIT 25.4 % (36.0-46.0); HEMOGLOBIN 8.3 G/DL (11.9-15.5); MCV 91.7 FL (83-99)
[2018-01-09 06:13] LABS: BASOPHIL (%) 0.3 % (0-1); EOSINOPHIL (%) 2.5 % (0-5); EOSINOPHIL COUNT 0.3 K/uL (0-0.3); HEMATOCRIT 25.1 % (36.0-46.0); HEMOGLOBIN 8.5 G/DL (11.9-15.5); IMMATURE GRANULOCYTE (%) 0.6 % (0.0-0.7); LYMPHOCYTE (%) 15.3 % (15-42); MCH 31.3 PG (29.0-34.0); MCHC 33.9 G/DL (30.0-36.0); MCV 92.3 FL (83-99); MONOCYTE (%) 8.5 % (3-12); MONOCYTE COUNT 1.1 K/uL (0-0.8); NEUTROPHIL (%) 72.8 % (45-76); NEUTROPHIL COUNT 9.5 K/uL (1.8-6.4); PLATELET COUNT 327 K/uL (156-360); RBC DIS.WIDTH-CV 13.4 % (11.8-14.6); RBC DIS.WIDTH-SD 44.9 % (39-53); RED BLOOD COUNT 2.72 M/uL (3.80-5.20); WHITE BLOOD COUNT 13.1 K/uL (4.1-10.2)
[2018-01-09 06:33] LABS: CHLORIDE 103 MEQ/L (99-109); GFR ESTIMATE (CALCULATED) > 59 mL/min/; GLUCOSE 94 mg/dL (70-99); IRON 27 MCG/DL (35-150); POTASSIUM 4.4 MEQ/L (3.7-5.4); SODIUM 132 MEQ/L (136-147); TRANSFERRIN (TIBC) 164.5 mg/dL (215-380); TRANSFERRIN SATUR. 16 % (20-55); UREA NITROGEN (BUN) 17 mg/dL (9-23)
[2018-01-09 20:22] LABS: HEMATOCRIT 26.7 % (36.0-46.0); HEMOGLOBIN 8.8 G/DL (11.9-15.5)
[2018-01-10 04:08] VITALS: BP 114/76
[2018-01-10 06:42] LABS: BASOPHIL (%) 0.3 % (0-1); BASOPHIL COUNT 0.1 K/uL (0-0.1); EOSINOPHIL (%) 0.7 % (0-5); EOSINOPHIL COUNT 0.1 K/uL (0-0.3); HEMATOCRIT 24.8 % (36.0-46.0); HEMOGLOBIN 8.2 G/DL (11.9-15.5); IMMATURE GRANULOCYTE (%) 0.7 % (0.0-0.7); LYMPHOCYTE (%) 8.4 % (15-42); LYMPHOCYTE COUNT 1.5 K/uL (1.0-2.8); MCH 30.9 PG (29.0-34.0); MCHC 33.1 G/DL (30.0-36.0); MCV 93.6 FL (83-99); MONOCYTE (%) 8.6 % (3-12); MONOCYTE COUNT 1.5 K/uL (0-0.8); NEUTROPHIL (%) 81.3 % (45-76); NEUTROPHIL COUNT 14.5 K/uL (1.8-6.4); PLATELET COUNT 304 K/uL (156-360); RBC DIS.WIDTH-CV 13.5 % (11.8-14.6); RBC DIS.WIDTH-SD 46.4 % (39-53); RED BLOOD COUNT 2.65 M/uL (3.80-5.20); WHITE BLOOD COUNT 17.8 K/uL (4.1-10.2)
[2018-01-10 07:07] VITALS: BP 123/75
[2018-01-10 07:11] LABS: CHLORIDE 103 MEQ/L (99-109); CREATININE 0.9 MG/DL (0.6-1.3); GFR ESTIMATE (CALCULATED) > 59 mL/min/; POTASSIUM 4.7 MEQ/L (3.7-5.4); SODIUM 131 MEQ/L (136-147); UREA NITROGEN (BUN) 13 mg/dL (9-23)
[2018-01-10 11:50] VITALS: BP 117/75
[2018-01-10 15:56] VITALS: BP 102/70
[2018-01-10 20:22] VITALS: BP 110/76
[2018-01-11 00:02] VITALS: BP 106/73
[2018-01-11 04:12] VITALS: BP 111/68
[2018-01-11 07:57] VITALS: BP 99/65
[2018-01-11 08:51] VITALS: BP 103/66
[2018-01-11 16:40] VITALS: BP 99/70
[2018-01-12] VITALS: BP 104/68
[2018-01-12 06:58] VITALS: BP 110/72
[2018-01-12 10:31] LABS: HEMATOCRIT 26.4 % (36.0-46.0); HEMOGLOBIN 8.6 G/DL (11.9-15.5); MCHC 32.6 G/DL (30.0-36.0); MCV 95.3 FL (83-99); PLATELET COUNT 367 K/uL (156-360); RBC DIS.WIDTH-CV 13.4 % (11.8-14.6); RBC DIS.WIDTH-SD 46.7 % (39-53); RED BLOOD COUNT 2.77 M/uL (3.80-5.20); WHITE BLOOD COUNT 10.5 K/uL (4.1-10.2)
[2018-01-12 10:45] VITALS: BP 106/72
[2018-01-12 10:59] LABS: CHLORIDE 102 MEQ/L (99-109); CREATININE 0.9 MG/DL (0.6-1.3); GFR ESTIMATE (CALCULATED) > 59 mL/min/; GLUCOSE 151 mg/dL (70-99); POTASSIUM 4.1 MEQ/L (3.7-5.4); SODIUM 135 MEQ/L (136-147); UREA NITROGEN (BUN) 14 mg/dL (9-23)
[2018-01-12] MEDS ORDERED: NICOTINE PATCH1 EAC1 TD (13:47)
[2018-01-12] MEDS ORDERED: FERROUS SULFAT325 MG PO (13:47)
[2018-01-12] MEDS ORDERED: SODIUM CHLORIDE1 G1 PO (13:49)
[2018-01-12] MEDS ORDERED: SANTYL30 GM TP (13:49)
[2018-01-12 15:12] VITALS: BP 97/64
== END 2018-01-12 16:54 | disposition home health service (06) | DRG 580 ==
LOC: EME 11:23 → EDOF 18:31 → 2EAST 18:31 → ENRESERV 18:44 → 2EAST 01-06 00:13
PROVIDERS: Emergency Medicine; Family Medicine; Family Medicine Sports Medicine; Surgery Plastic and Reconstructive Surgery
PROC: 30233N1 Transfusion of Nonautologous Red Blood Cells into Peripheral Vein, Percutaneous Approach (ICD-10-PCS; principal; 2018-01-06)
PROC: 0WBF0ZZ Excision of Abdominal Wall, Open Approach (ICD-10-PCS; 2018-01-09)
DX: M79.3 Panniculitis, unspecified (principal); L02.211 Cutaneous abscess of abdominal wall; L03.311 Cellulitis of abdominal wall; E11.52 Type 2 diabetes mellitus with diabetic peripheral angiopathy with gangrene; D62 Acute posthemorrhagic anemia; K73.9 Chronic hepatitis, unspecified; K74.60 Unspecified cirrhosis of liver; E87.1 Hypo-osmolality and hyponatremia; R18.8 Other ascites; L89.312 Pressure ulcer of right buttock, stage 2; D53.9 Nutritional anemia, unspecified; I12.9 Hypertensive chronic kidney disease with stage 1 through stage 4 chronic kidney disease, or unspecified chronic kidney disease; N18.9 Chronic kidney disease, unspecified; E11.22 Type 2 diabetes mellitus with diabetic chronic kidney disease; J44.9 Chronic obstructive pulmonary disease, unspecified; K21.9 Gastro-esophageal reflux disease without esophagitis; I45.10 Unspecified right bundle-branch block; F41.9 Anxiety disorder, unspecified; F32.9 Major depressive disorder, single episode, unspecified; F10.21 Alcohol dependence, in remission; L94.2 Calcinosis cutis; E78.9 Disorder of lipoprotein metabolism, unspecified; F17.210 Nicotine dependence, cigarettes, uncomplicated; Z71.6 Tobacco abuse counseling; Z79.84 Long term (current) use of oral hypoglycemic drugs; Z90.12 Acquired absence of left breast and nipple; Z82.49 Family history of ischemic heart disease and other diseases of the circulatory system; Z83.3 Family history of diabetes mellitus
CPT/HCPCS: 74177; 80048; 80051; 80053; 81003; 82565; 82948; 83540; 83605; 83690; 84466; 84484; 84520; 85014; 85018; 85025; 85027; 85610; 85730; 86850; 86900; 86901; 86920; 87040; 87070; 87075; 87205; 88305; 93005; 99281; 99285; A6260; J0171; J0330; J0690; J1100; J1170; J1940; J2250; J2270; J2405; J3010; J3370; J7030; J7040; J7120; P9016

== ENCOUNTER 2018-01-31 09:37 | Day surgery (SDC) | payer OTHER ==
[~2018-01-31] VITALS: Ht 157.5 cm; Wt 58.0 kg
[~2018-01-31 09:37] MED LIST changes: +FERROUS SULFAT325 MG PO; +NICOTINE PATCH1 EAC1 TD; +SANTYL30 GM TP; +SODIUM CHLORIDE1 G1 PO
[2018-01-31 10:12] VITALS: BP 136/70
[2018-01-31 14:30] VITALS: BP 121/65
== END 2018-01-31 15:20 | disposition home or self-care (01) ==
LOC: SDC 09:37
PROVIDERS: Surgery Plastic and Reconstructive Surgery
DX: T81.32XA Disruption of internal operation (surgical) wound, not elsewhere classified, initial encounter (principal); I10 Essential (primary) hypertension; F17.200 Nicotine dependence, unspecified, uncomplicated; Y83.8 Other surgical procedures as the cause of abnormal reaction of the patient, or of later complication, without mention of misadventure at the time of the procedure
CPT/HCPCS: 82948; 87205; J0690; J1100; J1170; J2250; J2405

== ENCOUNTER 2018-02-09 07:13 | Emergency (ER) | payer OTHER ==
[~2018-02-09] VITALS: Ht 157.5 cm; Wt 65.9 kg
[2018-02-09 08:44] LABS: HEMATOCRIT 27.9 % (36.0-46.0); HEMOGLOBIN 9.3 G/DL (11.9-15.5); MCHC 33.3 G/DL (30.0-36.0); MCV 95.9 FL (83-99); PLATELET COUNT 271 K/uL (156-360); RBC DIS.WIDTH-CV 14.1 % (11.8-14.6); RBC DIS.WIDTH-SD 49.9 % (39-53); RED BLOOD COUNT 2.91 M/uL (3.80-5.20); WHITE BLOOD COUNT 9.6 K/uL (4.1-10.2)
[2018-02-09 09:11] LABS: CHLORIDE 102 mEq/L (99-109)
[2018-02-09 09:12] LABS: POTASSIUM 3.8 mEq/L (3.7-5.4); SODIUM 138 mEq/L (136-147)
[2018-02-09 09:13] LABS: GLUCOSE 113 mg/dL (70-99)
[2018-02-09 09:17] LABS: CREATININE 1.1 mg/dL (0.6-1.3); GFR ESTIMATE (CALCULATED) 57 mL/min/
[2018-02-09 09:18] LABS: UREA NITROGEN (BUN) 23 mg/dL (9-23)
[2018-02-09 11:30] VITALS: BP 120/72
[2018-02-09] MEDS ORDERED: COLACE100 MG PO (14:46)
[2018-02-09] MEDS ORDERED: OXAYDO5 MG PO (15:38)
== END 2018-02-09 15:52 | disposition home or self-care (01) ==
LOC: EME 07:13
PROVIDERS: Nurse Practitioner Family
DX: K59.00 Constipation, unspecified (principal); R10.32 Left lower quadrant pain; T81.31XA Disruption of external operation (surgical) wound, not elsewhere classified, initial encounter; Y83.8 Other surgical procedures as the cause of abnormal reaction of the patient, or of later complication, without mention of misadventure at the time of the procedure; K74.60 Unspecified cirrhosis of liver; F17.200 Nicotine dependence, unspecified, uncomplicated
CPT/HCPCS: 74177; 80048; 85027; 99281; 99285; J2405; J3010; J7030

== ENCOUNTER 2018-03-08 18:13 | Emergency (ER) | payer OTHER ==
[~2018-03-08] VITALS: Ht 157.5 cm; Wt 66.5 kg
[~2018-03-08 18:13] MED LIST changes: +COLACE100 MG PO; +OXAYDO5 MG PO
[2018-03-08 19:20] LABS: HEMATOCRIT 29.5 % (36.0-46.0); MCH 31.6 PG (29.0-34.0); MCHC 33.9 G/DL (30.0-36.0); MCV 93.4 FL (83-99); RBC DIS.WIDTH-CV 12.2 % (11.8-14.6); RBC DIS.WIDTH-SD 42.2 % (39-53); RED BLOOD COUNT 3.16 M/uL (3.80-5.20); WHITE BLOOD COUNT 10.9 K/uL (4.1-10.2)
[2018-03-08 19:21] LABS: PLATELET COUNT 362 K/uL (156-360)
[2018-03-08 19:34] LABS: ALBUMIN 3.5 g/dL (3.2-4.8); CHLORIDE 100 mEq/L (99-109); SODIUM 133 mEq/L (136-147)
[2018-03-08 19:36] LABS: GLUCOSE 106 mg/dL (70-99); TOTAL PROTEIN 8.5 g/dL (6.4-8.3)
[2018-03-08 19:38] LABS: TOTAL BILIRUBIN 0.2 mg/dL (0.0-1.0)
[2018-03-08 19:40] LABS: ALKALINE PHOSPHATASE 128 IU/L (3-129); CREATININE 1.3 mg/dL (0.6-1.3); GFR ESTIMATE (CALCULATED) 47 mL/min/
[2018-03-08 19:41] LABS: UREA NITROGEN (BUN) 25 mg/dL (9-23)
[2018-03-08 19:42] LABS: AST (GOT) 14 IU/L (2-34)
[2018-03-08 19:43] LABS: ALT (GPT) 22 IU/L (3-49)
[2018-03-08 19:45] LABS: QUANTITATIVE HCG < 4.0 MIU/ML
[2018-03-08] MEDS ORDERED: DURAGESIC25 MCG TD (21:32)
[2018-03-08] MEDS ORDERED: SILVADENE,SSD,T50 GM TP (21:32)
[2018-03-08] MEDS ORDERED: PERCOCET 5/31 TABLET PO (21:33)
[2018-03-08 21:47] VITALS: BP 145/76
== END 2018-03-08 21:49 | disposition home or self-care (01) ==
LOC: EME 18:13
DX: T81.30XA Disruption of wound, unspecified, initial encounter (principal); Z98.890 Other specified postprocedural states; F17.200 Nicotine dependence, unspecified, uncomplicated; Z86.69 Personal history of other diseases of the nervous system and sense organs
CPT/HCPCS: 80053; 81003; 84702; 85027; 87070; 87075; 87076; 87205; 99281; 99284

== ENCOUNTER 2018-03-12 03:57 | Emergency (ER) | payer OTHER ==
[~2018-03-12] VITALS: Ht 157.5 cm; Wt 65.0 kg
[~2018-03-12 03:57] MED LIST changes: +DURAGESIC25 MCG TD; +SILVADENE,SSD,T50 GM TP
[2018-03-12 05:02] LABS: BASOPHIL (%) 0.3 % (0-1); EOSINOPHIL (%) 2.5 % (0-5); EOSINOPHIL COUNT 0.3 K/uL (0-0.3); HEMATOCRIT 29.4 % (36.0-46.0); IMMATURE GRANULOCYTE (%) 0.3 % (0.0-0.7); LYMPHOCYTE (%) 14.7 % (15-42); LYMPHOCYTE COUNT 1.7 K/uL (1.0-2.8); MCH 31.5 PG (29.0-34.0); MCV 92.7 FL (83-99); MONOCYTE (%) 6.9 % (3-12); MONOCYTE COUNT 0.8 K/uL (0-0.8); NEUTROPHIL (%) 75.3 % (45-76); NEUTROPHIL COUNT 8.7 K/uL (1.8-6.4); PLATELET COUNT 326 K/uL (156-360); RBC DIS.WIDTH-CV 12.1 % (11.8-14.6); RBC DIS.WIDTH-SD 41.6 % (39-53); RED BLOOD COUNT 3.17 M/uL (3.80-5.20); WHITE BLOOD COUNT 11.5 K/uL (4.1-10.2)
[2018-03-12 05:10] LABS: CHLORIDE 99 mEq/L (99-109); SODIUM 137 mEq/L (136-147)
[2018-03-12 05:12] LABS: GLUCOSE 117 mg/dL (70-99)
[2018-03-12 05:16] LABS: CREATININE 1.3 mg/dL (0.6-1.3); GFR ESTIMATE (CALCULATED) 47 mL/min/
[2018-03-12 05:17] LABS: UREA NITROGEN (BUN) 17 mg/dL (9-23)
[2018-03-12] MEDS ORDERED: PERCOCET 5/31 TABLET PO (06:12)
[2018-03-12 06:33] VITALS: BP 159/94
== END 2018-03-12 06:34 | disposition home or self-care (01) ==
LOC: EME 03:57
PROVIDERS: Physician Assistant
DX: G89.18 Other acute postprocedural pain (principal); G89.29 Other chronic pain; L03.311 Cellulitis of abdominal wall; Z90.10 Acquired absence of unspecified breast and nipple; K74.60 Unspecified cirrhosis of liver; Z76.82 Awaiting organ transplant status; F17.200 Nicotine dependence, unspecified, uncomplicated
CPT/HCPCS: 74177; 80048; 83605; 85025; 87040; 99281; 99285; J7040; J7050

== ENCOUNTER 2018-06-14 00:28 | Emergency (ER) | payer OTHER ==
[~2018-06-14] VITALS: Ht 157.5 cm; Wt 72.7 kg
[2018-06-14 02:30] VITALS: BP 143/86
== END 2018-06-14 02:30 | disposition home or self-care (01) ==
LOC: EME 00:28
DX: G89.18 Other acute postprocedural pain (principal); K74.60 Unspecified cirrhosis of liver; R56.9 Unspecified convulsions; F17.200 Nicotine dependence, unspecified, uncomplicated; Z87.19 Personal history of other diseases of the digestive system; Z90.10 Acquired absence of unspecified breast and nipple
CPT/HCPCS: 99281; 99283